=== PATIENT | male | born 1970 | race Caucasian/White ===

== ENCOUNTER 2016-07-26 11:49 | Emergency (ER) | payer BC ==
[2016-07-26] MEDS ORDERED: LIDOCAINE 2% MDV 20 ML VIAL As Ordered ONE (14:14)
--- NOTE | 2016-07-26 14:50 | EDDOCDS ---
Physician Documentation [facility] Name: Jonathan Sarkar Age: 46 yrs Sex: Male : 1970 Arrival Date: 07/26/2016 Time: 11:49 Bed PD Private MD: Dev Corrigan A. Disposition: 07/26/16 14:38 Discharged to Home/Self Care. Impression: Laceration without foreign body of right wrist. - Condition is Stable. - Discharge Instructions: Wound Check. - Prescriptions for naproxen 500 mg Oral tablet - take 1 tablet by ORAL route every 12 hours; 28 tablet. Tylenol 325 mg Oral Tablet - take 2 tablet by ORAL route every 6 hours as needed; 1 bottle. - Medication Reconciliation, Local Pharmacy Hours form. - Follow up: Emergency Department; When: As soon as possible; Reason: Worsening of conditions. Follow up: Private Physician; When: 2 - 3 days; Reason: Recheck today's complaints. - Problem is new. - Symptoms have improved. Historical: - Allergies: no known allergies; - Home Meds: 1. Wellbutrin XL 150 mg Oral Tb24 1 tab once daily 2. Motrin 800 mg Oral tab 1 tab 3 times per day 3. Ritalin 20 mg Oral tab daily - PSHx: Hernia repair; left knee surgery; - Immunization history:: Last tetanus immunization: unknown. - Family history: Not pertinent. - Social history: Smoking status: Patient states was never smoker of tobacco. No barriers to communication noted, The patient speaks fluent Belgian. - : The pt / caregiver states he / she is not on anticoagulants. Home medication list is obtained from the patient. - Exposure Risk Screening:: None identified. Vital Signs: 07/26 11:53 BP 142 / 112; Pulse 100; Resp 18; Temp 98.0; Pulse Ox 100% ; Weight 86.18 kg / 189.99 elp lbs; Height 5 ft. 8 in. (172.72 cm); Pain 5/10; 14:45 BP 125 / 92 LA Sitting (auto/lg); Pulse 79; Resp 18; Temp 98.2(T); Pulse Ox 99% on R/A; ar3 Pain 4/10; 11:53 Body Mass Index 28.89 (86.18 kg, 172.72 cm) elp MDM: 13:16 Wound Care ordered. jk8 13:34 Financial registration complete. mm15 14:13 Lidocaine 20 mg/mL (2 %) 10 ml Infiltration once; to bedside ordered. jk8 14:14 Vital Signs ordered. jk8 14:19 [facility] Payment Agreement was scanned into [employer] and attached to record. mm15 Administered Medications: 14:30 Drug: Lidocaine 10 ml [lidocaine 20 mg/mL (2 %) injection solution (10 mL)] {Note: mcp given by PA. Sarahy} Route: Infiltration; Signatures: Clemencia Jovel RN RN Carlos Sen mm15 Alexander Golden PA-C PA-C jk8 The chart was reviewed and I authenticate all verbal orders and agree with the evaluation and treatment provided.Attachments: 14:19 [facility] Payment Agreement mm15 MTDD
--- NOTE | 2016-07-26 14:50 | EDDOCDS ---
Nurse's Notes [facility] Name: Jonathan Sarkar Age: 46 yrs Sex: Male : 1970 Arrival Date: 07/26/2016 Time: 11:49 Bed PD Private MD: Dev Corrigan A. Diagnosis: Laceration without foreign body of right wrist Presentation: 07/26 11:57 Presenting complaint: Patient states: Cut right wrist with utility knife. Adult Sepsis [facility] Screening: The patient does not have new or worsening altered mentation. Patient's respiratory rate is less than 22. Systolic blood pressure is greater than 100. Patient has a qSOFA score of 0- Negative Sepsis Screen. Suicide/Homicide risk assessment- the patient denies having any suicidal and/or homicidal ideations and does not present with any other emotional, behavioral or mental health complaints. Status: Patient is not a computing services director or dependent. Transition of care: patient was not received from another setting of care. 11:57 Acuity: JOVITA Level 4 [facility] 11:57 Method Of Arrival: Walkin/Carried/Asstd [facility] Triage Assessment: 11:59 General: Appears in no apparent distress, Behavior is cooperative. Pain: Location: mcp right wrist Pain currently is 5 out of 10 on a pain scale. HIV screening NA for this visit Offered previously. Neurological: No deficits noted. Respiratory: No deficits noted. Derm: Skin is pink, warm & dry. Injury Description: Laceration sustained to right wrist is gauze dressing intact. Historical: - Allergies: no known allergies; - Home Meds: 1. Wellbutrin XL 150 mg Oral Tb24 1 tab once daily 2. Motrin 800 mg Oral tab 1 tab 3 times per day 3. Ritalin 20 mg Oral tab daily - PSHx: Hernia repair; left knee surgery; - Immunization history:: Last tetanus immunization: unknown. - Family history: Not pertinent. - Social history: Smoking status: Patient states was never smoker of tobacco. No barriers to communication noted, The patient speaks fluent Occitan. - : The pt / caregiver states he / she is not on anticoagulants. Home medication list is obtained from the patient. - Exposure Risk Screening:: None identified. Screenin:49 Screening information is obtained from the patient. Fall risk: No risks identified. mcp Assistance ADL's: requires no assistance with activities of daily living. Abuse/DV Screen: The patient / caregiver reports he/she is: not in a situation that causes fear, pain or injury. Nutritional screening: No deficits noted. Advance Directives: Currently, there is no health care proxy. There is no active DNR order. There is no Power of Network Diagnostic Support Specialist. home support is adequate. Assessment: 14:48 General: Appears in no apparent distress, Behavior is cooperative. Neurological: No mcp deficits noted. Respiratory: Airway is patent Respiratory effort is even, unlabored. Derm: Skin is pink, warm & dry. Injury Description: Laceration sustained to right wrist is clean, 0.5 to 2.5 cm long, bleeding moderately. Vital Signs: 11:53 BP 142 / 112; Pulse 100; Resp 18; Temp 98.0; Pulse Ox 100% ; Weight 86.18 kg; Height 5 elp ft. 8 in. (172.72 cm); Pain 5/10; 14:45 BP 125 / 92 LA Sitting (auto/lg); Pulse 79; Resp 18; Temp 98.2(T); Pulse Ox 99% on R/A; ar3 Pain 4/10; 11:53 Body Mass Index 28.89 (86.18 kg, 172.72 cm) [facility] Vitals: 11:53 Log In Time: July 26, 2016 at 11:52. [facility] ED Course: 11:52 Patient visited by Anila Bedolla PCA. elp 11:52 Dev Corrigan is Private Physician. elp 11:52 Patient moved to Waiting elp 11:53 Patient visited by Anila Bedolla PCA. elp 11:53 Patient moved to Pre RCE elp 11:57 Triage Initiated mcp 12:00 Patient visited by Clemencia Jovel RN. mcp 12:34 Patient moved to Triage 1 ar3 13:15 [facility] jk8 13:15 Ayaan Wan MD is Attending Physician. jk8 13:15 Patient visited by Alexander Golden PA-C. jk8 13:16 Patient moved to PD2 / ar3 13:23 Patient visited by Clemencia Jovel RN. mcp 13:23 Wound care to laceration located on right wrist was soaked in sterile water Patient mcp tolerated well. 14:19 [facility] Payment Agreement was scanned into [employer] and attached to record. mm15 14:46 Patient visited by Fany Garland PCA. ar3 14:49 The patient / caregiver is instructed regarding the plan of care and ED course. Patient mcp has correct armband on for positive identification. Bed in low position. Call light in reach. Adult w/ patient. 14:50 No IV's were initiated during this patient's visit. No procedures done that require mcp assistance. Administered Medications: 14:30 Drug: Lidocaine 10 ml [lidocaine 20 mg/mL (2 %) injection solution (10 mL)] {Note: mcp given by PA. Sarahy} Route: Infiltration; Order Results: There are currently no results for this order. Outcome: 14:38 Discharge ordered by Provider. jk8 14:49 Discharge Assessment: patient administered narcotics - no. The following High Risk [facility] Discharge criteria are identified: None. Discharged to home ambulatory, with significant other. Condition: stable. Discharge instructions given to patient, Instructed on discharge instructions, follow up and referral plans. medication usage, wound care, Demonstrated understanding of instructions, medications, Pt was receptive of discharge instructions/ teaching. Prescriptions given X 2. No special radiology studies were completed. Property sent home with patient. 14:50 Patient left the ED. [facility] Signatures: Clemencia Jovel RN RN [facility] Fany Garland, INSTRUCTIONAL FACILITATOR INSTRUCTIONAL FACILITATOR ar3 Carlos Jennings mm15 Anila Bedolla, INSTRUCTIONAL FACILITATOR INSTRUCTIONAL FACILITATOR Alexander Dover PA-C PA-C jk8 MTDD
[2016-07-27] MEDS ORDERED: METAL LOCK LOOP XX ONE (05:20)
--- NOTE | 2016-07-28 15:51 | EDDOCDS ---
Physician Documentation [facility] Name: Jonathan Sarkar Age: 46 yrs Sex: Male : 1970 Arrival Date: 07/26/2016 Time: 11:49 Bed PD Private MD: Dev Corrigan A. Disposition: 07/26/16 14:38 Discharged to Home/Self Care. Impression: Laceration without foreign body of right wrist. - Condition is Stable. - Discharge Instructions: Wound Check. - Prescriptions for naproxen 500 mg Oral tablet - take 1 tablet by ORAL route every 12 hours; 28 tablet. Tylenol 325 mg Oral Tablet - take 2 tablet by ORAL route every 6 hours as needed; 1 bottle. - Medication Reconciliation, Local Pharmacy Hours form. - Follow up: Emergency Department; When: As soon as possible; Reason: Worsening of conditions. Follow up: Private Physician; When: 2 - 3 days; Reason: Recheck today's complaints. - Problem is new. - Symptoms have improved. Historical: - Allergies: no known allergies; - Home Meds: 1. Wellbutrin XL 150 mg Oral Tb24 1 tab once daily 2. Motrin 800 mg Oral tab 1 tab 3 times per day 3. Ritalin 20 mg Oral tab daily - PSHx: Hernia repair; left knee surgery; - Immunization history:: Last tetanus immunization: unknown. - Family history: Not pertinent. - Social history: Smoking status: Patient states was never smoker of tobacco. No barriers to communication noted, The patient speaks fluent Bangladeshi. - : The pt / caregiver states he / she is not on anticoagulants. Home medication list is obtained from the patient. - Exposure Risk Screening:: None identified. Vital Signs: 07/26 11:53 BP 142 / 112; Pulse 100; Resp 18; Temp 98.0; Pulse Ox 100% ; Weight 86.18 kg / 189.99 elp lbs; Height 5 ft. 8 in. (172.72 cm); Pain 5/10; 14:45 BP 125 / 92 LA Sitting (auto/lg); Pulse 79; Resp 18; Temp 98.2(T); Pulse Ox 99% on R/A; ar3 Pain 4/10; 11:53 Body Mass Index 28.89 (86.18 kg, 172.72 cm) elp MDM: 13:16 Wound Care ordered. jk8 13:34 Financial registration complete. mm15 14:13 Lidocaine 20 mg/mL (2 %) 10 ml Infiltration once; to bedside ordered. jk8 14:14 Vital Signs ordered. jk8 14:19 [facility] Payment Agreement was scanned into [employer] and attached to record. mm15 20:59 T-Sheet-- Draft Copy was scanned into [employer] and attached to record. klr Administered Medications: 14:30 Drug: Lidocaine 10 ml [lidocaine 20 mg/mL (2 %) injection solution (10 mL)] {Note: mcp given by PA. Sarahy} Route: Infiltration; Signatures: Clemencia Jovel RN RN mcp Carlos Jennings mm15 Alexander Golden PA-C PA-C jk8 Redder, Kathie klr The chart was reviewed and I authenticate all verbal orders and agree with the evaluation and treatment provided.Attachments: 14:19 [facility] Payment Agreement mm15 20:59 T-Sheet-- Draft Copy klr Chart Complete MTDD
--- NOTE | 2016-07-28 15:51 | EDDOCDS ---
Physician Documentation [facility] Name: Jonathan Sarkar Age: 46 yrs Sex: Male : 1970 Arrival Date: 07/26/2016 Time: 11:49 Bed PD Private MD: Dev Corrigan A. Disposition: 07/26/16 14:38 Discharged to Home/Self Care. Impression: Laceration without foreign body of right wrist. - Condition is Stable. - Discharge Instructions: Wound Check. - Prescriptions for naproxen 500 mg Oral tablet - take 1 tablet by ORAL route every 12 hours; 28 tablet. Tylenol 325 mg Oral Tablet - take 2 tablet by ORAL route every 6 hours as needed; 1 bottle. - Medication Reconciliation, Local Pharmacy Hours form. - Follow up: Emergency Department; When: As soon as possible; Reason: Worsening of conditions. Follow up: Private Physician; When: 2 - 3 days; Reason: Recheck today's complaints. - Problem is new. - Symptoms have improved. Historical: - Allergies: no known allergies; - Home Meds: 1. Wellbutrin XL 150 mg Oral Tb24 1 tab once daily 2. Motrin 800 mg Oral tab 1 tab 3 times per day 3. Ritalin 20 mg Oral tab daily - PSHx: Hernia repair; left knee surgery; - Immunization history:: Last tetanus immunization: unknown. - Family history: Not pertinent. - Social history: Smoking status: Patient states was never smoker of tobacco. No barriers to communication noted, The patient speaks fluent [place]. - : The pt / caregiver states he / she is not on anticoagulants. Home medication list is obtained from the patient. - Exposure Risk Screening:: None identified. Vital Signs: 07/26 11:53 BP 142 / 112; Pulse 100; Resp 18; Temp 98.0; Pulse Ox 100% ; Weight 86.18 kg / 189.99 elp lbs; Height 5 ft. 8 in. (172.72 cm); Pain 5/10; 14:45 BP 125 / 92 LA Sitting (auto/lg); Pulse 79; Resp 18; Temp 98.2(T); Pulse Ox 99% on R/A; ar3 Pain 4/10; 11:53 Body Mass Index 28.89 (86.18 kg, 172.72 cm) elp MDM: 13:16 Wound Care ordered. jk8 13:34 Financial registration complete. mm15 14:13 Lidocaine 20 mg/mL (2 %) 10 ml Infiltration once; to bedside ordered. jk8 14:14 Vital Signs ordered. jk8 14:19 [facility] Payment Agreement was scanned into [employer] and attached to record. mm15 20:59 T-Sheet-- Draft Copy was scanned into [employer] and attached to record. klr Administered Medications: 14:30 Drug: Lidocaine 10 ml [lidocaine 20 mg/mL (2 %) injection solution (10 mL)] {Note: mcp given by PA. Sarahy} Route: Infiltration; Signatures: Clemencia Jovel RN RN mcp Carlos Jennings mm15 Alexander Golden PA-C PA-C jk8 Redder, Kathie klr The chart was reviewed and I authenticate all verbal orders and agree with the evaluation and treatment provided.Attachments: 14:19 [facility] Payment Agreement mm15 20:59 T-Sheet-- Draft Copy klr Chart Complete MTDD
--- NOTE | 2016-07-28 15:51 | EDDOCDS ---
Nurse's Notes [facility] Name: Jonathan Sarkar Age: 46 yrs Sex: Male : 1970 Arrival Date: 07/26/2016 Time: 11:49 Bed PD Private MD: Dev Corrigan A. Diagnosis: Laceration without foreign body of right wrist Presentation: 07/26 11:57 Presenting complaint: Patient states: Cut right wrist with utility knife. Adult Sepsis [facility] Screening: The patient does not have new or worsening altered mentation. Patient's respiratory rate is less than 22. Systolic blood pressure is greater than 100. Patient has a qSOFA score of 0- Negative Sepsis Screen. Suicide/Homicide risk assessment- the patient denies having any suicidal and/or homicidal ideations and does not present with any other emotional, behavioral or mental health complaints. Status: Patient is not a donor services manager or dependent. Transition of care: patient was not received from another setting of care. 11:57 Acuity: JOVITA Level 4 [facility] 11:57 Method Of Arrival: Walkin/Carried/Asstd [facility] Triage Assessment: 11:59 General: Appears in no apparent distress, Behavior is cooperative. Pain: Location: mcp right wrist Pain currently is 5 out of 10 on a pain scale. HIV screening NA for this visit Offered previously. Neurological: No deficits noted. Respiratory: No deficits noted. Derm: Skin is pink, warm & dry. Injury Description: Laceration sustained to right wrist is gauze dressing intact. Historical: - Allergies: no known allergies; - Home Meds: 1. Wellbutrin XL 150 mg Oral Tb24 1 tab once daily 2. Motrin 800 mg Oral tab 1 tab 3 times per day 3. Ritalin 20 mg Oral tab daily - PSHx: Hernia repair; left knee surgery; - Immunization history:: Last tetanus immunization: unknown. - Family history: Not pertinent. - Social history: Smoking status: Patient states was never smoker of tobacco. No barriers to communication noted, The patient speaks fluent Albanian. - : The pt / caregiver states he / she is not on anticoagulants. Home medication list is obtained from the patient. - Exposure Risk Screening:: None identified. Screenin:49 Screening information is obtained from the patient. Fall risk: No risks identified. mcp Assistance ADL's: requires no assistance with activities of daily living. Abuse/DV Screen: The patient / caregiver reports he/she is: not in a situation that causes fear, pain or injury. Nutritional screening: No deficits noted. Advance Directives: Currently, there is no health care proxy. There is no active DNR order. There is no Power of Forest Landscape Ecology Professor. home support is adequate. Assessment: 14:48 General: Appears in no apparent distress, Behavior is cooperative. Neurological: No mcp deficits noted. Respiratory: Airway is patent Respiratory effort is even, unlabored. Derm: Skin is pink, warm & dry. Injury Description: Laceration sustained to right wrist is clean, 0.5 to 2.5 cm long, bleeding moderately. Vital Signs: 11:53 BP 142 / 112; Pulse 100; Resp 18; Temp 98.0; Pulse Ox 100% ; Weight 86.18 kg; Height 5 elp ft. 8 in. (172.72 cm); Pain 5/10; 14:45 BP 125 / 92 LA Sitting (auto/lg); Pulse 79; Resp 18; Temp 98.2(T); Pulse Ox 99% on R/A; ar3 Pain 4/10; 11:53 Body Mass Index 28.89 (86.18 kg, 172.72 cm) [facility] Vitals: 11:53 Log In Time: July 26, 2016 at 11:52. [facility] ED Course: 11:52 Patient visited by Anila Bedolla PCA. elp 11:52 Dev Corrigan is Private Physician. elp 11:52 Patient moved to Waiting elp 11:53 Patient visited by Anila Bedolla PCA. elp 11:53 Patient moved to Pre RCE elp 11:57 Triage Initiated mcp 12:00 Patient visited by Clemencia Jovel RN. mcp 12:34 Patient moved to Triage 1 ar3 13:15 Alexander Golden [facility]C [facility]. jk8 13:15 Ayaan Wan MD is Attending Physician. jk8 13:15 Patient visited by Alexander Golden PA-C. jk8 13:16 Patient moved to PD2 / ar3 13:23 Patient visited by Clemencia Jovel RN. mcp 13:23 Wound care to laceration located on right wrist was soaked in sterile water Patient mcp tolerated well. 14:19 [facility] [place] Agreement was scanned into [employer] and attached to record. mm15 14:46 Patient visited by Fany Garland, KATIE. ar3 14:49 The patient / caregiver is instructed regarding the plan of care and ED course. Patient mcp has correct armband on for positive identification. Bed in low position. Call light in reach. Adult w/ patient. 14:50 No IV's were initiated during this patient's visit. No procedures done that require mcp assistance. 20:59 T-Sheet-- Draft Copy was scanned into [employer] and attached to record. klr Administered Medications: 14:30 Drug: Lidocaine 10 ml [lidocaine 20 mg/mL (2 %) injection solution (10 mL)] {Note: mcp given by PA. Sarahy} Route: Infiltration; Order Results: There are currently no results for this order. Outcome: 14:38 Discharge ordered by Provider. jk8 14:49 Discharge Assessment: patient administered narcotics - no. The following High Risk [facility] Discharge criteria are identified: None. Discharged to home ambulatory, with significant other. Condition: stable. Discharge instructions given to patient, Instructed on discharge instructions, follow up and referral plans. medication usage, wound care, Demonstrated understanding of instructions, medications, Pt was receptive of discharge instructions/ teaching. Prescriptions given X 2. No special radiology studies were completed. Property sent home with patient. 14:50 Patient left the ED. [facility] Signatures: Clemencia Jovel RN RN [facility] GillFany, DENTURE MODEL MAKER DENTURE MODEL MAKER ar3 Carlos Jennings mm15 Anila Bedolla, DENTURE MODEL MAKER DENTURE MODEL MAKER Aelxander Dover PA-C PA-C jk8 Redder, Kathie klr Chart Complete MTDD
== END 2016-07-26 14:50 | disposition home or self-care (01) ==
LOC: M ED 11:49
DX: S61.511A Laceration without foreign body of right wrist, initial encounter (principal); W26.0XXA Contact with knife, initial encounter; Y92.89 Other specified places as the place of occurrence of the external cause; Y93.89 Activity, other specified; Y99.8 Other external cause status; Z79.899 Other long term (current) drug therapy

== ENCOUNTER → 2022-09-07 | Outpatient (CLI) | payer BC | LOC: M WUC 09:18 | PROVIDERS: ATTEND Student in an Organized Health Care Education/Training Program | DX: M25.511 Pain in right shoulder (principal) ==